=== PATIENT | male | born 1955 | race Two or more races ===

== ENCOUNTER 2018-12-07 20:36 | Emergency (ER) | payer MEDICAID ==
[~2018-12-07] VITALS: Ht 175.3 cm; Wt 79.4 kg
[~2018-12-07 20:36] MED LIST: ALBUTEROL SULF8.5 GM INH; CELEBREX200 MG ORAL; DEBROX15 M1 OT; IBUPROFEN600 MG ORAL; IBUPROFEN600 MG PO; MECLIZINE HCL25 MG ORAL; MOTRIN400 MG PO; NORCO 5-325 TA1 EACH ORAL; NORCO 5-325 TA1 EACH PO; PREDNISONE20 M1 PO; VALIUM5 MG PO
[2018-12-07 20:50] VITALS: BP 131/84
[2018-12-07] MEDS: Ipratropium 0.02% Inh Soln 2.5ml UD HHN ONE (21:13)
[2018-12-07] MEDS: Albuterol ud Inhalation HHN ONE (21:13)
--- NOTE | 2018-12-07 21:53 | Emergency Room Report ---
History of Present Illness General Chief Complaint: Flu Like Symptoms Source: Patient Present Illness HPI Patient presents with 1 week of upper respiratory symptoms. He mainly is complaining about a cough productive of clear phlegm. He also has been wheezing. He has an albuterol inhaler that has not been helping him. He has some mild chest pain with the cough. He has no exertional dyspnea or chest pain. He denies any fevers or chills. The patient denies sore throat, ear pain, nausea, vomiting, diarrhea, dysuria, skin rashes, joint pain, headache, change in vision, polyuria or polydipsia. Allergies: Coded Allergies: No Known Allergies (Unverified , 11/16/12) Patient History Past Medical History: see triage record Social History: Reports: smoking Social History Narrative With his son Reviewed Nursing Documentation: PMH: Agreed; PSxH: Agreed Nursing Documentation-PM Past Medical History: No Stated History Hx Asthma: Yes Review of Systems All Other Systems: negative except mentioned in HPI Physical Exam Vital Signs Date Time Temp Pulse Resp B/P (MAP) Pulse Ox O2 Delivery O2 Flow Rate FiO2 12/07/18 20:44 99.1 81 18 131/84 (100) 94 Room Air 12/07/18 21:13 21 Sp02 EP Interpretation: reviewed, normal General Appearance: well appearing, no apparent distress, GCS 15 Head: normocephalic, atraumatic Eyes: bilateral eye normal inspection, bilateral eye other - Arcus ENT: normal pharynx, moist mucus membranes Neck: supple Respiratory: chest non-tender, crackles, rhonchi, wheezing, expiration Cardiovascular #1: regular rate, rhythm, no edema, other - Occasional skipped beats when I take his pulse Cardiovascular #2: 2+ radial (R) Gastrointestinal: normal inspection, normal bowel sounds, non tender, no mass, non-distended Genitourinary: no CVA tenderness Musculoskeletal: back normal, gait/station normal, normal range of motion Neurologic: alert, oriented x3, grossly normal Psychiatric: mood/affect normal Skin: normal inspection, warm/dry Medical Decision Making Diagnostic Impression: Primary Impression: Asthmatic bronchitis Qualified Codes: J45.41 - Moderate persistent asthma with (acute) exacerbation ER Course Presents with 1 week of upper respiratory symptoms. Differential includes acute myocardial infarction, COPD exacerbation, bronchitis, pneumonia amongst others. The patient will be evaluated with an EKG and a chest x-ray. He will receive prednisone and a breathing treatment. Pending on EKG lab work may be indicated. EKG normal. No ectopy observed. Chest x-ray with COPD no infiltrates. Improved with breathing treatments. Discussed treatment with son as well as advised smoking cessation. Patient stable for outpatient observation and treatment. EKG Diagnostic Results Rate: normal Rhythm: NSR ST Segments: no acute changes - incomplete RBBB Rhythm Strip Diag. Results EP Interpretation: yes Rhythm: NSR, no PVC's, no ectopy Chest X-Ray Diagnostic Results Chest X-Ray Diagnostic Results : Chest X-Ray Ordered: Yes # of Views/Limited/Complete: 1 View Indication: Other EP Interpretation: Yes Interpretation: no consolidation, no effusion, no pneumothorax, other - copd Impression: Other Electronically Signed by: Electronically signed by Brian Salguero MD Last Vital Signs Date Time Temp Pulse Resp B/P (MAP) Pulse Ox O2 Delivery O2 Flow Rate FiO2 12/07/18 22:52 98.2 72 24 127/82 100 Room Air 21 Status: improved Disposition: HOME, SELF-CARE Condition: Improved Scripts Ipratropium Benton 0.5MG/2.5ML (IPRATROPIUM BROMIDE 0.5MG/2.5ML) 0.2 Mg/1 Ml Solution 0.5 MG HHN Q6H PRN for Shortness of Breath, #28 EA Prov: Brian Salguero MD 12/07/18 Albuterol Sulfate* (ALBUTEROL SULFATE HHN*) 2.5 Mg/3 Ml Vial.neb 2.5 MG HHN Q4H PRN for Shortness of Breath, #25 VIAL Prov: Brian Salguero MD 12/07/18 Albuterol Sulfate* (ALBUTEROL SULFATE MDI*) 8.5 Gm Hfa.aer.ad 2 PUFF INH Q6H, #1 EA 0 Refills Prov: Brian Salguero MD 12/07/18 Guaifenesin/Codeine Phos* (ROBITUSSIN AC*) 118 Ml Liquid 5 ML ORAL Q6H PRN for For Cough, #90 ML 0 Refills Prov: Brian Salguero MD 12/07/18 Prednisone* (PREDNISONE*) 20 Mg Tablet 40 MG ORAL DAILY, #10 TAB Prov: Brian Salguero MD 12/07/18 Brian Salguero MD Dec 07, 2018:53
[2018-12-07] MEDS ORDERED: ALBUTEROL SULF8.5 GM INH (22:42)
[2018-12-07] MEDS ORDERED: GUAIFENESIN-CO118 M1 ORAL (22:42)
[2018-12-07] MEDS ORDERED: PREDNISONE20 MG ORAL (22:42)
[2018-12-07] MEDS ORDERED: IPRATROPIU0.2 MG/1 M HHN (22:45)
[2018-12-07] MEDS ORDERED: ALBUTEROL2.5 MG/3 M HHN (22:45)
[2018-12-07 22:52] VITALS: BP 127/82
--- NOTE | 2018-12-08 09:50 | Diagnostic Imaging Report ---
Indication: Cough Technique: One view of the chest Comparison: 08/27/2013 Findings: Lungs and pleural spaces are clear. Heart size is normal. Previously demonstrated right basilar atelectasis is no longer evident Impression: No acute process
== END 2018-12-07 22:50 | disposition home or self-care (01) ==
LOC: EMR 21:10
DX: J45.909 Unspecified asthma, uncomplicated (principal)
CPT/HCPCS: 71045; 93005; 94640; 99284; J7512